=== PATIENT | female | born 1965 | race Caucasian/White ===

== ENCOUNTER → 2018-06-02 | Outpatient (CLI) | payer OTHER ==
[~2018-06-02] MED LIST: BACTRIM,SEPT1 TABLET PO; CIPRO500 MG PO; COLACE100 MG PO; FLAGYL500 MG PO; Feosol PO; Flagyl PO; Levaquin PO; NASONEX17 GM BOTH NARES; PRILOSEC20 MG PO; Phenergan PO; TYLOX1 CAPSULE PO
== END | disposition home or self-care (01) ==
LOC: CDC 10:31
DX: Z01.810 Encounter for preprocedural cardiovascular examination (principal); K80.00 Calculus of gallbladder with acute cholecystitis without obstruction; R94.31 Abnormal electrocardiogram [ECG] [EKG]
CPT/HCPCS: 93000

== ENCOUNTER 2018-06-08 08:10 | Day surgery (SDC) | payer OTHER ==
[~2018-06-08] VITALS: Ht 170.2 cm; Wt 73.0 kg
[2018-06-08 08:53] VITALS: BP 123/79
[2018-06-08] MEDS ORDERED: NORCO 5/3251 TABLET PO ×2 (10:41→10:45)
[2018-06-08 12:45] VITALS: BP 101/61
[2018-06-08 13:45] VITALS: BP 100/60
[2018-06-08 15:17] VITALS: BP 112/67
== END 2018-06-08 15:33 | disposition home or self-care (01) ==
LOC: SDC
PROC: 0FT44ZZ Resection of Gallbladder, Percutaneous Endoscopic Approach (ICD-10-PCS; principal; 2018-06-08)
DX: K81.1 Chronic cholecystitis (principal); Z87.891 Personal history of nicotine dependence; Z90.710 Acquired absence of both cervix and uterus
CPT/HCPCS: 88304; J1100; J1170; J1580; J1885; J2250; J2405; J2710; J2765; J3010; J7050; J7643; Q0175; S0030